=== PATIENT | female | born 1990 | race African-American/Black ===

== ENCOUNTER 2017-04-30 16:45 | Emergency (ER) | payer OTHER ==
--- NOTE | ~2017-04-30 | CT71 ---
[facility] A Service [facility] RADIOLOGY TEXT RESULTS PATIENT: TAMI KHAN LOCATION: SED : [birth year] UNIT #: [id number] AGE: [address]: Garth Anderson SEX: F ORDER DR: [id number] [address] [id number] E MR#: [id number] Acc #: [id number] NAME: TAMI KHAN : 1990 SEX: F STUDY DATE/TIME: 04/30/2017 19:26 UNIT: SED ROOM: STUDY DESCRIPTION: CT Head Wo Contrast Attending Physician: Garth Anderson P.A.-C. Ordering Physician: Garth Anderson P.A.-C. Primary Care Physician: Michael García D.O. MEDICAL IMAGING REPORT This report is preliminary unless electronic signature is present. EXAM Noncontrast head CT. HISTORY Dizziness x2 weeks. COMPARISON Head CT 07/02/[address] exam was performed with one or more of the following radiation dose reduction techniques: automatic exposure control, adjustment of mA and/or kV according to patient size, and iterative reconstruction. FINDINGS Axial noncontrast imaging of the brain demonstrates a severely pixillated examination, possibly related to artifact from the patient's metal earring. No gross hemorrhage or mass effect. Evaluation of the brain parenchyma is limited. The bony calvaria, skull base, mastoids and sinuses are unremarkable. IMPRESSION Technically limited examination due to image noise related patient's earring which the patient states she cannot remove it. This creates very pixillated imaging of the brain parenchyma. No gross abnormality identified. If clinical symptoms persist further evaluation with MRI with removal the patient's earring may be warranted. Dictated by.Nitza. Chavo Schmidt M.D. [facility] A Service [facility] RADIOLOGY TEXT RESULTS PATIENT: TAMI KHAN LOCATION: SED : 91 UNIT #: [id number] AGE: [address]: Garth Anderson SEX: F ORDER DR: THIS IS AN ELECTRONICALLY VERIFIED REPORT Chavo Schmidt M.D. at 05/01/2017 2:48 PM ALEE/lucio TD: 05/01/2017 02:12 JOB #: [id number] MEDICAL IMAGING REPORT Page 1 of 1
[~2017-04-30 16:45] MED LIST: AMOXICILLIN PO; BIRTH CONTROL PATCH; FLEXERIL10 MG PO; NAPROSYN500 MG PO; NEXPLANON68 MG SQ; NIZORAL200 MG PO; NO MEDICATIONS; ORUDIS75 M1 PO; PHENERGAN W/CO120 ML PO; VOLTAREN75 MG PO; WELLBUTRIN PO; ZITHROMAX PO; [UNRECOGNIZED DRUG - REMARK]
[2017-04-30] MEDS ORDERED: NO MEDICATIONS (16:51)
[2017-04-30 19:14] LABS: BASOPHIL# 0.1 X10e3 (0-0.3); EOSINOPHIL# 0.1 X10e3 (0-0.7); EOSINOPHIL% 1.7 % (0.0-7.0); HEMATOCRIT 42.2 % (35.0-45.0); LYMPHOCYTE% 40.6 % (17.0-45.0); MEAN CELL VOLUME 90.9 FL (83-96); MEAN CORPUSCULAR HEMOGLOBIN 30.2 PG (28-34); MEAN CORPUSCULAR HGB CONC 33.2 g/dL (30-36); MEAN PLATELET VOLUME 8.7 FL (6.5-11.5); MONOCYTE# 0.4 X10e3 (0-1.0); MONOCYTE% 4.9 % (3.0-12.0); NEUTROPHIL# 3.9 X10e3 (1.5-7.1); NEUTROPHIL% 51.8 % (40-75); PLATELET COUNT 220 X10e3 (140-420); RED BLOOD COUNT 4.65 X10e (3.90-5.30); RED CELL DISTRIBUTION WIDTH 13.9 % (11.0-15.5); WHITE BLOOD COUNT 7.5 X10e3 (4.0-10.5)
[2017-04-30 19:15] LABS: DIFF IND NO
[2017-04-30 19:29] LABS: ALBUMIN SERUM 4.6 g/dL (3.5-5.0); BILIRUBIN, DIRECT 0.1 mg/dL (0.0-0.2); BILIRUBIN,INDIRECT 0.6 mg/dL (0.0-0.9); BILIRUBIN,TOTAL 0.7 mg/dL (0.2-2.0); CALCIUM SERUM 9.2 mg/dL (8.4-10.2); GLOM FILT RATE Estimated 90.7 mL/min (>60); POTASSIUM 3.7 mmol/L (3.5-5.1); PROTEIN TOTAL SERUM 7.9 g/dL (6.0-8.3)
[2017-04-30 20:02] LABS: URINE SOURCE CLEAN CATCH
[2017-04-30 20:04] LABS: URINE APPEARANCE CLEAR; URINE BILIRUBIN NEG (NEG); URINE BLOOD TRACE-INTACT (NEG); URINE COLOR YELLOW; URINE GLUCOSE NEG (NORM); URINE KETONE NEG (NEG); URINE LEUKOCYTE ESTERASE NEG (NEG); URINE NITRATE NEG (NEG); URINE PROTEIN NEG (NEG)
[2017-04-30 20:05] LABS: MICRO INDICATED? YES
[2017-04-30 20:10] LABS: CULTURE INDICATED? NO; URINE BACTERIA NEG (NEG); URINE MUCUS PRESENT; URINE SQUAMOUS EPITHELIAL CELL MODERATE /[HPF]
== END 2017-04-30 21:02 | disposition home or self-care (01) ==
LOC: SED 16:45
PROVIDERS: Physician Assistant
DX: R42 Dizziness and giddiness (principal); R11.0 Nausea
CPT/HCPCS: 36415; 70450; 80048; 80076; 81003; 84703; 85025; 99284